=== PATIENT | female | born 1965 ===

== ENCOUNTER 2017-05-18 16:06 | Emergency (ER) | payer OTHER ==
[2017-05-18 16:16] VITALS: BP 173/81; PULSE 106; RESP 20; TEMP 98; O2SAT 99
[2017-05-18] MEDS ORDERED: Sodium Chloride 0.9% 1,000 ML IV STA (17:18)
[2017-05-18 18:20] LABS: BASO % 0.4 % (0.0-2.0); EOS % 0.2 % (0.0-4.0); HEMATOCRIT 35.5 % (34.0-47.0); LYMPH # 1.6 K/uL (1.0-4.3); LYMPH % 20.6 % (20.0-40.0); MEAN CELL VOLUME 85.4 fl (81.0-99.0); MEAN CORPUSCULAR HEMOGLOBIN 27.2 pg (27.0-31.0); MEAN CORPUSCULAR HGB CONC 31.8 g/dL (33.0-37.0); MONO # 0.3 K/uL (0.0-0.8); MONO % 4.5 % (0.0-10.0); NEUT # 5.6 K/uL (1.8-7.0); NEUT % 74.3 % (50.0-75.0); RED CELL DISTRIBUTION WIDTH 16.5 % (11.5-14.5); WHITE BLOOD COUNT 7.5 K/uL (4.8-10.8)
--- NOTE | 2017-05-18 18:27 | ED PDOC ---
HPI: General Adult Time Seen by Provider: 05/18/17 16:49 Chief Complaint (Nursing): Chest Pain Chief Complaint (Provider): Chest Pain History Per: Patient History/Exam Limitations: no limitations Onset/Duration Of Symptoms: Days (x1 day) Current Symptoms Are (Timing): Still Present Additional Complaint(s): 51 y/o female with past medical history of migraine, rheumatoid arthritis and hypertension presents to the ED with multiple complaints that started today. She is having chest pain intermittently, right arm numbness, Headache, nausea, vomiting, diarrhea, bilateral leg exploding. Patient also states feeling weak and fatigued. Denies difficulty breathing, syncope, cough urinary problem or any further medical complaints. Past Medical History Reviewed: Historical Data, Nursing Documentation, Vital Signs Vital Signs: Last Vital Signs Temp 98 F 05/18/17 16:12 Pulse 106 H 05/18/17 16:12 Resp 20 05/18/17 16:12 BP 173/81 H 05/18/17 16:12 Pulse Ox 99 05/18/17 18:58 - Medical History PMH: Anxiety, Asthma, Depression, HTN, Hypercholesterolemia, Hyperlipidemia, Migraine - Surgical History Surgical History: Cholecystectomy - Family History Family History: States: Unknown Family Hx - Social History Current smoker - smoking cessation education provided: No Alcohol: None Drugs: Denies - Home Medications Home Medications: Ambulatory Orders Medication Instructions Recorded Ondansetron ODT [Zofran ODT] 4 mg PO Q8 PRN #12 odt 05/18/17 - Allergies Allergies/Adverse Reactions: Allergies Allergy/AdvReac Type Severity Reaction Status Date / Time No Known Allergies Allergy Unverified 01/27/13 10:32 Review of Systems ROS Statement: Except As Marked, All Systems Reviewed And Found Negative (As per HPI, otherwise negative) Cardiovascular: Positive for: Chest Pain Respiratory: Negative for: Cough Gastrointestinal: Positive for: Nausea, Vomiting, Diarrhea Genitourinary Female: Negative for: Dysuria, Frequency, Incontinence, Hematuria Musculoskeletal: Positive for: Leg Pain Neurological: Positive for: Weakness (anf fatigue), Numbness (Right arm), Headache. Negative for: Other (syncope) Physical Exam - Reviewed Nursing Documentation Reviewed: Yes Vital Signs Reviewed: Yes - Physical Exam Appears: Positive for: Non-toxic, No Acute Distress Head Exam: Positive for: ATRAUMATIC, NORMOCEPHALIC Skin: Positive for: Normal Color, Warm, Dry Eye Exam: Positive for: Normal appearance, EOMI, PERRL Neck: Positive for: Normal, Painless ROM, Supple Cardiovascular/Chest: Positive for: Regular Rate, Rhythm. Negative for: Murmur Respiratory: Positive for: Normal Breath Sounds. Negative for: Respiratory Distress Gastrointestinal/Abdominal: Positive for: Normal Exam, Soft. Negative for: Tenderness Back: Positive for: Normal Inspection. Negative for: L CVA Tenderness, R CVA Tenderness, Vertebral Tenderness Extremity: Positive for: Normal ROM, Swelling (Swelling noted in lower legs bilaterally). Negative for: Pedal Edema, Deformity Neurologic/Psych: Positive for: Alert, Oriented (x3) - Laboratory Results Result Diagrams: 05/18/17 18:13 05/18/17 18:13 - ECG O2 Sat by Pulse Oximetry: 99 (RA) Pulse Ox Interpretation: Normal Medical Decision Making Medical Decision Making: Time: 17:17 Plan: EKG BNP CMP Lipase Troponin I CBC w/ diff Sodium chloride 1L IV Zofran 4mg IV quality assurance monitor final IV insertion Reevaluation Time: 18:57 Upon provider reevaluation patient is feeling better, is medically stable, and requires no further treatment in the ED at this time. Patient will be discharged home with Rx for Zofran 4mg PO. Counseling was provided and all questions were answered regarding diagnosis. There is agreement to discharge plan. Return if symptoms persist or worsen. Scribe Attestation: Documented by Eliceo Sarmiento acting as a scribe for Alok Gutiérrez MD. Scribe Attestation: All medical record entries made by the Scribe were at my direction and personally dictated by me. I have reviewed the chart and agree that the record accurately reflects my personal performance of the history, physical exam, medical decision making, and the department course for this patient. I have also personally directed, reviewed, and agree with the discharge instructions and disposition. Disposition - Clinical Impression Clinical Impression: Chest pain, Vomiting and diarrhea, Leg swelling, Migraine - Patient ED Disposition Is Patient to be Admitted: No Doctor Will See Patient In The: Office Counseled Patient/Family Regarding: Studies Performed, Diagnosis, Need For Followup - Disposition Referrals: [facility] [Outside] Disposition: Routine/Home Disposition Time: 18:57 Condition: GOOD Additional Instructions: Follow up with your PCP in 2-3 days. Prescriptions: Ondansetron ODT [Zofran ODT] 4 mg PO Q8 PRN #12 odt PRN Reason: Nausea/Vomiting Instructions: Chest Pain (ED), Migraine Headache (ED), Gastroenteritis (ED)
[2017-05-18 18:28] LABS: ALB/GLOB RATIO 1.2 (1.0-2.1); ALKALINE PHOSPHATASE 76 U/L (38-126); ALT/SGPT 38 U/L (9-52); AST/SGOT 24 U/L (14-36); BILIRUBIN,TOTAL 0.4 mg/dl (0.2-1.3); BLOOD UREA NITROGEN 15 mg/dl (7-17); CALCIUM 9.1 mg/dL (8.4-10.2); CARBON DIOXIDE 31 mmol/L (22-30); CHLORIDE 103 mmol/L (98-107); GFR AFRICAN-AMERICAN > 60; GLUCOSE,RANDOM 88 mg/dL (65-105); LIPASE 84 U/L (23-300); POTASSIUM 3.8 MMOL/L (3.6-5.0); SODIUM 142 mmol/l (132-148); TOTAL PROTEIN 7.9 G/DL (6.3-8.2)
--- NOTE | 2017-05-19 08:07 | CARD ---
APPROVED REPORT EKG Measurement Heart [id number] <Conclusion> Normal sinus rhythm Normal ECG
== END 2017-05-18 19:40 | disposition home or self-care (01) ==
LOC: H.ER 16:06
DX: G43.909 Migraine, unspecified, not intractable, without status migrainosus (principal); K52.9 Noninfective gastroenteritis and colitis, unspecified; E78.00 Pure hypercholesterolemia, unspecified; F32.9 Major depressive disorder, single episode, unspecified; F41.9 Anxiety disorder, unspecified; I10 Essential (primary) hypertension; J45.909 Unspecified asthma, uncomplicated; M06.9 Rheumatoid arthritis, unspecified
CPT/HCPCS: 80053; 83690; 83880; 84484; 85025; 93005; 96374; 99282; J2405; J7040